=== PATIENT | female | born 1990 | race Caucasian/White ===

== ENCOUNTER 2016-12-02 14:51 | Emergency (ER) | payer SELFPAY ==
[~2016-12-02] VITALS: Ht 177.8 cm; Wt 75.0 kg
[~2016-12-02 14:51] MED LIST: CIPR500T4 PO
[2016-12-02 14:52] VITALS: BP 135/84; PULSE 85; RESP 18; TEMP 97.7; O2SAT 99
[2016-12-02] MEDS ORDERED: IBUP800T23 PO (16:28)
[2016-12-02] MEDS ORDERED: AUGM875T PO (16:28)
--- NOTE | 2016-12-02 16:29 | PD ---
HPI Chief Complaint: Bite or Sting Time Seen by Provider: 16:27 Travel History International Travel<30 days: No Contact w/Intl Traveler<30days: No Traveled to known affect area: No History of Present Illness HPI 25-year-old female presents to emergency Department with complaint of a puncture wound from a dog bite to her left lateral lower leg that occurred today. It was a friend's dog that she was taking care of. She does not know if the dog is up-to-date on his vaccinations. The patient denies being up-to- date on her tetanus vaccination. She denies paresthesias, loss of vision, decreased range of motion, decreased strength to the affected extremity. Denies fever, chills, nausea, vomiting. Did clean the wound out with alcohol. Has not taken any medications to alleviate her symptoms. No known allergies. Denies significant past medical history. No other modifying factors or associated signs and symptoms. PFSH Past Medical History Diminished Hearing: No ?: Not LMP: 11/22/16 : 2 Para: 1 Social History Alcohol Use: Yes (WEEKLY) Tobacco Use: Yes (1/2 PPD) Substance Use: No Allergies-Medications (Allergen,Severity, Reaction): Coded Allergies: No Known Allergies (Verified , 12/02/16) Reported Meds & Prescriptions Reported Meds & Active Scripts Active Ibuprofen 800 Mg Tab 800 Mg PO Q6HR PRN Augmentin (Amoxicillin-Clavulanate) 875-125 mg Tab 875 Mg PO BID 10 Days not for use in CrCl <30 ml/min. Cipro (Ciprofloxacin HCl) 500 Mg Tab 500 Mg PO BID 10 Days Review of Systems Except as stated in HPI: all other systems reviewed are Neg Physical Exam Narrative GENERAL: Well-nourished, well-developed female patient, in no acute distress SKIN: Warm and dry. Left lateral lower leg with one puncture wound that is less than 0.5 cm; areas without erythema, edema; minimal amount of bright red drainage. Left lower extremity supple and non-tense with 2+ pedal pulse and sensory intact without erythema or edema. HEAD: Atraumatic. Normocephalic. EYES: Pupils equal and round. No scleral icterus. No injection or drainage. ENT: Mucosa pink and moist. Airway patent. NECK: Trachea midline. CARDIOVASCULAR: Regular rate. RESPIRATORY: No accessory muscle use. GASTROINTESTINAL: Flat. MUSCULOSKELETAL: No obvious deformities. No clubbing. No cyanosis. No edema. NEUROLOGICAL: Awake and alert. Oriented 3. No obvious cranial nerve deficits. Motor grossly within normal limits. Normal speech. PSYCHIATRIC: Appropriate mood and affect; insight and judgment normal. Data Data Last Documented VS Vital Signs Date Time Temp Pulse Resp B/P Pulse Ox O2 Delivery O2 Flow Rate FiO2 12/02/16 14:52 97.7 85 18 135/84 99 Room Air Orders Wound Care (12/02/16 16:26) Tetanus/Diphtheria Tox Adult (Tetanus/Di (12/02/16 16:30) Ibuprofen (Motrin) (12/02/16 16:30) MDM Medical Decision Making Medical Screen Exam Complete: Yes Emergency Medical Condition: Yes Medical Record Reviewed: Yes Differential Diagnosis Dogbite wound, medical clearance, tetanus update Narrative Course 25-year-old female with dog bite puncture wound to the left lateral lower extremity. Tetanus updated in the ER. She is declining and initiation of rabies protocol. Ibuprofen administered in the ER. Wound care provided. Augmentin and ibuprofen prescribed for home. Patient verbalizes understanding and agreement with treatment plan. Patient is medically cleared and stable for discharge. Discussed reasons to return to the emergency department. Instructed patient to follow up with primary care provider. Patient agrees with treatment plan. The patients vital signs are stable and the patient is stable for outpatient follow-up and treatment. Patient discharged home, stable and in no acute distress. Diagnosis Primary Impression: Dog bite of left lower leg Qualified Code: S81.852A - Dog bite of left lower leg, initial encounter Referrals: Primary Care Physician Patient Instructions: Acute Wound Care (ED), Animal Bite (ED), General Instructions Departure Forms: Tests/Procedures, Work Release Enter return to work date: Dec 03, 2016 Additional Instructions: Antibiotics as prescribed and complete full course Ibuprofen or Tylenol as directed and as needed for pain and inflammation Keep area clean and dry Topical antibiotic ointment as needed for wound care , Or bandage as needed for wound care Follow up with primary care provider Return to the emergency department immediately with worsening of symptoms Med/Other Pt SpecificInfo: Prescription(s) given Scripts Ibuprofen 800 Mg [id number] Mg PO Q6HR PRN (PAIN) #30 TAB Ref 0 Prov:Keisha Soto [employer]ELOPER 12/02/16 Amoxicillin-Clavulanate (Augmentin)875-125 mg Kpt740 Mg PO BID 10 Days Ref 0 not for use in CrCl <30 ml/min. Prov:Keisha Soto 12/02/16 Disposition: 01 DISCHARGE HOME Condition: Stable Keisha Soto Dec 02, 2016 16:29
[2016-12-02] MEDS ORDERED: TETANUS/DIPHTHERIA TOXOID ADULT 0.5 ML VIAL IM ONE (16:30)
[2016-12-02] MEDS ORDERED: IBUPROFEN 800 MG TAB PO ONE (16:30)
== END 2016-12-02 17:06 | disposition home or self-care (01) ==
LOC: NEPB 14:51
DX: S81.852A Open bite, left lower leg, initial encounter (principal); F17.200 Nicotine dependence, unspecified, uncomplicated; Z23 Encounter for immunization; W54.0XXA Bitten by dog, initial encounter
CPT/HCPCS: 90471; 90714